=== PATIENT | male | born 1955 | race Caucasian/White ===

== ENCOUNTER 2017-06-26 05:00 | Emergency (ER) | payer SELFPAY ==
[~2017-06-26] VITALS: Ht 172.7 cm; Wt 75.0 kg
[2017-06-26 05:06] VITALS: BP 173/102; PULSE 96; RESP 18; TEMP 99.1; O2SAT 99
[2017-06-26] MEDS ORDERED: ACETAMINOPHEN/HYDROcodone 325 MG/5 MG TAB PO ONE (05:45)
[2017-06-26] MEDS ORDERED: KETOROLAC TROMETHAMINE 60 MG/2 ML (IM) VIAL IM ONE (05:45)
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
[2017-06-26 06:46] VITALS: RESP 16
[2017-06-26] MEDS ORDERED: HYDR-3516 PO (07:03)
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
== END 2017-06-26 08:49 | disposition home or self-care (01) ==
LOC: NEPE 05:00
DX: S42.032A Displaced fracture of lateral end of left clavicle, initial encounter for closed fracture (principal); V13.4XXA Pedal cycle driver injured in collision with car, pick-up truck or van in traffic accident, initial encounter; Y93.55 Activity, bike riding; Y92.410 Unspecified street and highway as the place of occurrence of the external cause
CPT/HCPCS: 73030; 73080; 96372; 99284; J1885

== ENCOUNTER 2017-06-28 12:21 | Observation (INO) | payer SELFPAY ==
[~2017-06-28] VITALS: Ht 172.7 cm; Wt 74.0 kg
[~2017-06-28 12:21] MED LIST: HYDR-3516 PO
[2017-06-28 12:23] VITALS: BP 191/94; PULSE 85; RESP 20; TEMP 99.3; O2SAT 100
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
[2017-06-28] MEDS ORDERED: MORPHINE SULFATE 4 MG/ML INJ IV PUSH ONE (15:15)
[2017-06-28 16:12] LABS: AUTOMATED NEUTROPHIL # 5.4 TH/MM3 (1.8-7.7); BASOPHIL # 0.1 TH/MM3 (0-0.2); BASOPHIL % 0.6 % (0.0-2.0); EOSINOPHIL # 0.1 TH/MM3 (0-0.4); EOSINOPHIL % 1.7 % (0.0-4.0); HEMATOCRIT 36.3 % (39.0-51.0); HEMO FLAGS DIFF FINAL; LYMPH % 23.5 % (9.0-44.0); LYMPHOCYTE # 1.9 TH/MM3 (1.0-4.8); MEAN CELL VOLUME 88.6 FL (80.0-100.0); MEAN CORPUSCULAR HEMOGLOBIN 29.8 PG (27.0-34.0); MEAN CORPUSCULAR HGB CONC 33.6 % (32.0-36.0); MONO % 6.8 % (0.0-8.0); NEUT % 67.4 % (16.0-70.0); PLATELET COUNT 209 TH/MM3 (150-450); RED CELL DISTRIBUTION WIDTH 13.5 % (11.6-17.2)
[2017-06-28 16:23] LABS: APTT (PATIENT) 24.9 SEC (24.3-30.1); INTERNATIONAL NORMALIZED RATIO 0.9 RATIO; PROTHROMBIN TIME - PATIENT 9.8 SEC (9.8-11.6)
--- NOTE | 2017-06-28 16:32 | RADRPT ---
EXAM DATE/TIME: 06/28/2017 16:11 [facility] COMPARISON: No previous studies available for comparison. INDICATIONS : Evaluate for pneumonia, pneumothorax, or any communicable disease. Pre op left clavicle. MEDICAL HISTORY : None. SURGICAL HISTORY : None. ENCOUNTER: Initial ACUITY: 2 days PAIN SCORE: 0/10 LOCATION: Bilateral chest FINDINGS: A single view of the chest demonstrates the lungs to be symmetrically aerated without evidence of mas s, infiltrate or effusion. The cardiomediastinal contours are unremarkable. Osseous structures are intact. Old left-sided rib fractures. CONCLUSION: No acute disease. Adin Whitlock MD on June 28, 2017 at 16:29 Board Certified Radiologist. This report was verified electronically.
[2017-06-28 16:42] LABS: BICARBONATE 30.1 MEQ/L (21.0-32.0); POTASSIUM 3.7 MEQ/L (3.5-5.1)
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
[2017-06-28] MEDS ORDERED: MORPHINE SULFATE 4 MG/ML INJ IV PUSH PRN (18:00)
[2017-06-28] MEDS ORDERED: ACETAMINOPHEN/HYDROcodone 325 MG/5 MG TAB PO PRN (18:00)
[2017-06-28 19:09] VITALS: BP 159/77; PULSE 77; RESP 16; TEMP 98.4; O2SAT 97
[2017-06-28] MEDS: DEXT 5%-NACL 0.9% 1000 ML INJ 1,000 ML IV SCH (19:09)
[2017-06-28 23:10] VITALS: BP 152/80; PULSE 84; RESP 17; TEMP 97.9; O2SAT 96
[2017-06-29 03:38] VITALS: BP 136/80; PULSE 80; RESP 17; TEMP 97.4; O2SAT 98
[2017-06-29 08:00] VITALS: BP 184/81; PULSE 87; RESP 16; TEMP 98.5; O2SAT 95
[2017-06-29] MEDS ORDERED: VANCOMYCIN HCL 1000 MG VIAL ONE (08:06)
[2017-06-29] MEDS ORDERED: ceFAZolin INJ 1,000 MG VIAL ONE (08:06)
[2017-06-29] MEDS ORDERED: GENTAMICIN SULFATE 80 MG/2 ML VIAL ONE (08:07)
[2017-06-29] MEDS ORDERED: BUPIVACAINE/EPINEPHRINE 0.25% 50 ML VIAL ONE (08:22)
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
[2017-06-29] MEDS ORDERED: DEXAMETHASONE SOD PHOS 4 MG/ML VIAL ONE (10:04)
[2017-06-29] MEDS ORDERED: FAMOTIDINE 20 MG/2 ML VIAL ONE (10:04)
[2017-06-29] MEDS ORDERED: METOPROLOL TARTRATE 25 MG TAB PO PRN (10:30)
[2017-06-29] MEDS ORDERED: SODIUM CHLORID 0.9% 500 ML IV PRN (10:30)
[2017-06-29] MEDS ORDERED: POVIDONE IODINE 5% (ANTISEPSIS KIT) 4 APPLICATIONS EACH NARE PRN (10:30)
[2017-06-29] MEDS ORDERED: CHLORHEXIDINE GLUCONATE 2 % 1 PACK (2 CLOTHS) TOPICAL PRN (10:30)
[2017-06-29] MEDS ORDERED: LACTATED RINGER'S 1000 ML IV PRN (10:30)
[2017-06-29] MEDS ORDERED: INSULIN HUMAN REGULAR 1,000 UNITS/10 ML VIAL SQ PRN (10:30)
[2017-06-29] MEDS: DEXT 5%-NACL 0.9% 1000 ML INJ 1,000 ML IV SCH (10:55)
[2017-06-29] MEDS ORDERED: ONDANSETRON HCL 4 MG/2 ML VIAL IV PUSH ONE (12:48)
[2017-06-29] MEDS ORDERED: NEOSTIGMINE 3 MG/3 ML SYR IV ONE (12:48)
[2017-06-29] MEDS ORDERED: PHENYLEPH/NS 1000 MCG/10 ML SYR IV ONE (12:48)
[2017-06-29] MEDS ORDERED: SODIUM CHLOR 0.9% 250 ML INJ 500 ML IV ONE (12:48)
[2017-06-29] MEDS ORDERED: PROPOFOL 200 MG/20 ML AMP IV ONE (12:48)
[2017-06-29] MEDS ORDERED: SUGAMMADEX SODIUM 200 MG/2 ML VIAL IV PUSH ONE ×2 (12:56)
--- NOTE | 2017-06-29 13:05 | PD.OP ---
cc: Clark Slater MD Operative Report Date of Surgery: Jun 29, 2017 Preoperative Diagnosis: Displaced left distal clavicle fracture Postoperative Diagnosis: Procedure: Open reduction internal fixation left clavicle fracture Anesthesia: Gen. Surgeon: Clark Slater Bryologist(s): LICO Peters PA-C The surgical procedure was assisted by my physician clerical assistant. My P.A. presence was necessary throughout this case for the manipulation and positioning of the surgical extremity. My P.A. was assisting me throughout the duration of this procedure. The skill set of a physician clerical assistant was medically necessary to complete this procedure. During the surgical case the surgical oncologist was working at the back table and the physician clerical assistant was directly assisting me. Operation and Findings: Patient was seen and evaluated preoperatively. Patient was found to have a displaced left distal clavicle fracture. The risks and benefits of surgical and nonsurgical options were discussed in detail and informed consent was obtained for surgery. Patient was brought to the operating room and placed on or table. IV sedation and GETA were administered by anesthesiologist. Antibiotics were given prior to incision. Operative arm and shoulder were prepped with alcohol followed by Hibiclens and draped usual sterile fashion. Timeout procedure was performed. Procedure began with a 4 inch incision over the anterior clavicle. Subcutaneous tissue was dissected with Bovie. The fracture was now visualized. Soft tissue was retracted. Fracture was cleaned with curettes. Attention was now turned to reduction. Gentle traction was applied and fracture tenaculums were used to reduce the fracture. Fracture was manipulated to achieve excellent reduction. Multiplanar fluoroscopy confirmed well aligned fracture. K wires were used to hold provisional fixation. A Synthes clavicle hook plate was selected. The hook was placed underneath the acromion. Plate was provisionally held in place K wires. 3.5 cortical screws were used to compress plate to bone. Fluoroscopy confirmed appropriate plate placement and fracture reduction. Multiple screws were placed on each side of the fracture. All Screws were predrilled and premeasured for appropriate length. Care was taken to avoid injury to neurovascular structures. Final fluoroscopy revealed well aligned fracture with well-placed hardware. Wound was thoroughly irrigated. Fascia was closed with #1 Vicryl, subcutaneous tissues closed with 3 -0 Vicryl, and skin was closed with tiffanie. Sterile dressings were applied. Patient was placed into a sling. Patient was awakened and transferred to recovery in stable condition. Needle and sponge counts were correct. Clark Slater MD Jun 29, 2017 13:05
[2017-06-29] MEDS ORDERED: HYDR-3366 PO (13:06)
[2017-06-29] MEDS ORDERED: SODIUM CHLORIDE 0.9% FLUSH 5 ML FLUSH IVF PRN (13:15)
[2017-06-29] MEDS ORDERED: ONDANSETRON HCL 4 MG/2 ML VIAL IVP PRN (13:15)
[2017-06-29] MEDS ORDERED: DO NOT ADM ANY ANTICOAGULANT DRUGS PRN (13:20)
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
[2017-06-29] MEDS ORDERED: MIDAZOLAM HCL 2 MG/2 ML VIAL ONE (13:29)
[2017-06-29] MEDS ORDERED: fentaNYL CITRATE 250 MCG/5 ML AMP ONE (13:30)
--- NOTE | 2017-06-29 13:33 | EKG ---
Date Performed: 06/28/2017 Time Performed: 19:14:13 PTAGE: 61 years EKG: Sinus rhythm NORMAL ECG NO PREVIOUS TRACING DOCTOR: Priscilla Oliveira Interpretating Date/Time 06/29/2017 13:31:38
[2017-06-29] MEDS ORDERED: *LABETALOL HCL 100 MG/20 ML VIAL PERIprocedural Use ONLY ONE (13:36)
--- NOTE | 2017-06-29 15:01 | RADRPT ---
EXAM DATE/TIME: 06/29/2017 12:50 [facility] COMPARISON: CHEST SINGLE AP, June 28, 2017, 16:11. INDICATIONS : Left distal clavicle fracture repair. OR. MEDICAL HISTORY : None. SURGICAL HISTORY : None. ENCOUNTER: Initial ACUITY: 1 day PAIN SCORE: Non-responsive. LOCATION: Left distal clavicle FINDINGS: 3 spot intraoperative fluoroscopic views of the left clavicle demonstrate an oblique fracture through the distal left clavicle with plate and screw fixation in good alignment at the fracture sites. CONCLUSION: Postoperative changes. Paulino Thoams MD on June 29, 2017 at 14:59 Board Certified Radiologist. This report was verified electronically.
[2017-06-29] MEDS: ACETAMINOPHEN/HYDROcodone 325 MG/10 MG TAB PO PRN ×2 (15:49→22:07)
[2017-06-29 16:00] VITALS: BP 133/73; PULSE 82; RESP 18; TEMP 98.2; O2SAT 96
[2017-06-29] MEDS: MORPHINE SULFATE 4 MG/ML INJ IV PUSH PRN (17:13)
[2017-06-29] MEDS ORDERED: ceFAZolin 2 GM PREMIX 50 ML IV SCH (18:00)
[2017-06-29 19:58] VITALS: BP 118/58; PULSE 96; RESP 17; TEMP 98.2; O2SAT 96
[2017-06-29] MEDS: SODIUM CHLORIDE 0.9% FLUSH 5 ML FLUSH IVF SCH (21:00)
[2017-06-29] MEDS: SODIUM CHLORIDE 0.9% FLUSH 10 ML FLUSH IV FLUSH PRN ×2 (22:08→22:09)
[2017-06-29] MEDS: DOCUSATE SODIUM 50 MG/SENNA 8.6 MG TAB PO SCH (22:09)
[2017-06-29 23:41] VITALS: BP 121/62; PULSE 78; RESP 17; TEMP 98; O2SAT 97
[2017-06-30] MEDS: ACETAMINOPHEN/HYDROcodone 325 MG/10 MG TAB PO PRN ×2 (01:11→07:43)
[2017-06-30 03:16] VITALS: BP 120/68; PULSE 70; RESP 18; TEMP 98; O2SAT 96
[2017-06-30] MEDS: DEXT 5%-NACL 0.9% 1000 ML INJ 1,000 ML IV SCH (03:48)
[2017-06-30] MEDS: DOCUSATE SODIUM 50 MG/SENNA 8.6 MG TAB PO SCH (07:42)
[2017-06-30] MEDS: SODIUM CHLORIDE 0.9% FLUSH 5 ML FLUSH IVF SCH (07:44)
[2017-06-30 08:26] VITALS: BP 175/83; PULSE 83; RESP 18; TEMP 97.7; O2SAT 96
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
[2017-06-30] MEDS ORDERED: IBUP-232 PO (09:03)
--- NOTE | 2017-06-30 09:38 | PD.ORT.PN ---
Subjective Subjective Remarks POD#1 s/p orif left clavicle pain controlled this a.m. Objective Vitals Vital Signs Date Time Temp Pulse Resp B/P (MAP) Pulse Ox O2 Delivery O2 Flow Rate FiO2 06/30/17 08:26 97.7 83 18 175/83 (113) 96 06/30/17 03:16 98.0 70 18 120/68 (85) 96 06/29/17 23:41 98.0 78 17 121/62 (81) 97 06/29/17 19:58 98.2 96 17 118/58 (78) 96 06/29/17 16:00 98.2 82 18 133/73 (93) 96 06/29/17 14:30 97.8 69 16 155/88 (110) 95 Room Air 06/29/17 14:15 68 15 157/86 (109) 95 Room Air 06/29/17 14:00 72 15 160/89 (112) 94 Room Air 06/29/17 13:45 75 15 162/92 (115) 94 Room Air 06/29/17 13:30 81 15 187/105 (132) 100 Nasal Cannula 3 06/29/17 13:20 98.4 90 16 173/83 (113) 98 Nasal Cannula 3 I/O 06/29/17 06/29/17 06/29/17 06/30/17 06/30/17 06/30/17 06:59 14:59 22:59 06:59 14:59 22:59 Intake Total 550 ml 460 ml 50 ml Output Total 3100 ml Balance -2550 ml 460 ml 50 ml Intake Oral 460 ml IV Total 50 ml 50 ml Other 500 ml Output Estimated Blood Loss 100 ml Other 3000 ml # Voids 2 0 2 Result Diagram: 06/28/17 1515 06/28/17 1515 Objective Remarks pt awake and alert, NAD left shoulder CDDI NVI left UE Assessment & Plan Assessment and Plan d/c home today sling at all times keep incision clean and dry-- no dressings changes needed f/u ortho clinic in 2 wks Clark Gonzalez MD Jun 30, 2017 09:38
[2017-06-30] MEDS: MORPHINE SULFATE 4 MG/ML INJ IV PUSH PRN (10:00)
[2017-06-30 10:05] VITALS: BP 148/82
== END 2017-06-30 11:54 | disposition home or self-care (01) ==
LOC: NEPK 12:21 → NEDA 17:27 → INTOOBSV 17:27 → NEDH 18:59 → NEPGCP 21:28
PROVIDERS: ADMIT Hospitalist; ATTEND Hospitalist
DX: S42.032D Displaced fracture of lateral end of left clavicle, subsequent encounter for fracture with routine healing (principal); F41.9 Anxiety disorder, unspecified; Z87.891 Personal history of nicotine dependence; V13.4XXD Pedal cycle driver injured in collision with car, pick-up truck or van in traffic accident, subsequent encounter; Y92.410 Unspecified street and highway as the place of occurrence of the external cause; Z01.810 Encounter for preprocedural cardiovascular examination
CPT/HCPCS: 00450; 23515; 71010; 73000; 76000; 80048; 85025; 85610; 85730; 93005; 96365; 96375; 96376; 99285; C1713; G0378; J0690; J1100; J1580; J2250; J2270; J2370; J2405; J2710; J3010; J3370; J7042; J7050